=== PATIENT | female | born 1975 | race Caucasian/White ===

== ENCOUNTER 2022-09-07 15:45 | Emergency (ER) | payer BC, OTHER ==
--- NOTE | 2022-09-07 18:11 | RAD REPORT ---
EXAM DESCRIPTION: RAD - Chest Single View - 09/07/2022 6:04 pm CLINICAL HISTORY: CHEST PAIN COMPARISON: None TECHNIQUE: AP portable chest image was obtained 09/07/2022 6:04 pm . FINDINGS: No peripheral mass or consolidation. Hazy increased opacification at each lung base could be minimal infiltrate or atelectasis. Minimal bibasilar infiltrate is not entirely excluded. Heart and vasculature are normal. No measurable pleural effusion and no pneumothorax. No acute bony abnormality seen. No acute aortic findings suspected. IMPRESSION: Minimal hazy opacification at each lung base that could be minimal atelectasis or infilt rate.
[2022-09-07 18:28] LABS: Hematocrit 41.9 % (36.0-45.0); Lymphocytes % 37.1 % (15.3-44.8); MCV 104.2 fL (80-100); MPV 9.3 fL (7.6-11.3); RBC Red Blood Cell Count 4.02 M/uL (3.86-4.86)
[2022-09-07 18:31] LABS: Protime INR 1.08
[2022-09-07 18:42] LABS: Potassium 3.9 mmol/L (3.5-5.1); Troponin High Sensitivity 22.3 pg/mL (<58.9)
[2022-09-07] MEDS ORDERED: FENTANYL CITR 100 MCG/2 ML ONE ×2 (18:44→20:45)
[2022-09-07 19:05] LABS: SARS-COV-2 RT PCR NEGATIVE (NEGATIVE)
--- NOTE | 2022-09-07 19:36 | RAD REPORT ---
EXAM DESCRIPTION: CT - Head Brain Wo Cont - 09/07/2022 7:25 pm CLINICAL HISTORY: Hypertensive emergency COMPARISON: No comparisons TECHNIQUE: Axial 5 mm thick images of the head were obtained without IV contrast. All CT scans are performed using dose optimization technique as appropriate and may include automated exposure control or mA/KV adjustment according to patient size. FINDINGS: No intracranial hemorrhage, mass, edema or shift of mid-line structures. No acute infarcti on changes seen. No abnormal extra-axial fluid collections. Ventricles are normal. Mastoid air cells and visualized portions of the paranasal sinuses are clear. No acute bony findings. IMPRESSION: Negative non-contrast CT head examination.
--- NOTE | 2022-09-07 19:37 | RAD REPORT ---
EXAM DESCRIPTION: CT - Chest For Pe Angio - 09/07/2022 7:25 pm CLINICAL HISTORY: chest pain COMPARISON: Chest Single View dated 09/07/2022 TECHNIQUE: Dynamically enhanced 3 mm thick images of the chest were obtained during administration o f approximately 150mL Isovue 370 IV contrast. Coronal and oblique MIP reconstruction images were gene rated and reviewed. Exam utilizes a protocol to evaluate the pulmonary arterial tree. All CT scans are performed using dose optimization technique as appropriate and may include automated exposure control or mA/KV adjustment according to patient size. FINDINGS: No pulmonary emboli are identified. The aorta as imaged shows no acute or suspicious finding. No pericardial thickening or effusion. No infiltrate or mass in the lung parenchyma. Minimal lung base atelectasis present. Prominent perica rdial fat pad noted on the right. No pleural effusion or pleural thickening. No mediastinal or hilar suspicious masses. No chest wall masses or abnormal axillary lymphadenopathy. IMPRESSION: No pulmonary emboli identified. No other significant or suspicious findings.
[2022-09-07] MEDS ORDERED: ASPIRIN 81 MG CHEWABLE TABLET ONE (20:44)
[2022-09-07] MEDS ORDERED: carvediloL 6.25 MG TAB ONE (20:44)
[2022-09-07] MEDS ORDERED: CYANOCOBALAMIN 1,000 MCG TAB ONE (20:54)
[2022-09-07] MEDS ORDERED: CYANOCOBALAMIN 1000MCG/ML INJ ONE ×2 (21:23→21:40)
[2022-09-07 21:38] LABS: Creatine Phosphokinase 34 U/L (26-192); Troponin High Sensitivity 23.6 pg/mL (<58.9)
[2022-09-07 22:09] LABS: CKMB Creatine Kinase MB < 1.0 ng/mL (1.0-3.6)
--- NOTE | 2022-09-07 22:15 | EDPHYS ---
Physician Documentation [facility] Name: Kerry Morales Age: 46 yrs Sex: Female : 1975 Arrival Date: 09/07/2022 Time: 15:46 Bed 17 Private MD: ED Physician Raman Delgado HPI: 09/07 18:24 This 46 yrs old Female presents to ER via Ambulatory with complaints of High Blood snw Pressure, Headache, Shortness Of Breath. 18:24 The patient has elevated blood pressure and discovered this at home. Onset: The snw symptoms/episode began/occurred acutely. Modifying factors: The symptoms are aggravated by no coreg x 2 months. Severity of symptoms: At its worst the blood pressure was severe, 200 mm Hg. The patient has experienced similar episodes in the past. The patient has not recently seen a physician. 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 - Social history:: Smoking status: Patient reports the use of cigarette tobacco products, smokes one-half pack cigarettes per day. ROS: 18:15 Eyes: Negative for injury, pain, redness, and discharge, ENT: Negative for injury, snw pain, and discharge, Neck: Negative for injury, pain, and swelling. 18:15 Constitutional: Positive for fatigue, malaise. 18:15 Cardiovascular: Positive for chest pain, of the left subscapular area and right subscapular area. Exam: 18:16 Head/Face: Normocephalic, atraumatic. snw 18:16 ENT: Nares patent. No nasal discharge, no septal abnormalities noted. Tympanic membranes are normal and external auditory canals are clear. Oropharynx with no redness, swelling, or masses, exudates, or evidence of obstruction, uvula midline. Mucous membranes moist. Neck: Trachea midline, no thyromegaly or masses palpated, and no cervical lymphadenopathy. Supple, full range of motion without nuchal rigidity, or vertebral point tenderness. No Meningismus. Chest/axilla: Normal chest wall appearance and motion. Nontender with no deformity. No lesions are appreciated. Cardiovascular: Regular rate and rhythm with a normal S1 and S2. No gallops, murmurs, or rubs. Normal PMI, no JVD. No pulse deficits. Respiratory: Lungs have equal breath sounds bilaterally, clear to auscultation and percussion. No rales, rhonchi or wheezes noted. No increased work of breathing, no retractions or nasal flaring. Abdomen/GI: Soft, non-tender, with normal bowel sounds. No distension or tympany. No guarding or rebound. No evidence of tenderness throughout. Back: No spinal tenderness. No costovertebral tenderness. Full range of motion. Skin: Warm, dry with normal turgor. Normal color with no rashes, no lesions, and no evidence of cellulitis. MS/ Extremity: Pulses equal, no cyanosis. Neurovascular intact. Full, normal range of motion. Neuro: Awake and alert, GCS 15, oriented to person, place, time, and situation. Cranial nerves II-XII grossly intact. Motor strength 5/5 in all extremities. Sensory grossly intact. Cerebellar exam normal. Normal gait. Psych: Awake, alert, with orientation to person, place and time. Behavior, mood, and affect are within normal limits. 18:16 Constitutional: The patient appears alert, awake, anxious, uncomfortable. 18:16 Eyes: Pupils: equal, round, and reactive to light and accomodation, Conjunctiva: normal, Sclera: no appreciated abnormality. Vital Signs: 16:50 Pulse 76; Resp 15; Temp 98.4(O); Pulse Ox 100% on R/A; ss 16:51 BP 198 / 102; ss 18:41 BP 192 / 100 RA; Pulse 77; Resp 15; Pulse Ox 100% ; jl7 18:41 BP 203 / 110 LA; Pulse 78; jl7 19:19 BP 184 / 99; Pulse 75; Resp 19 S; Pulse Ox 100% on R/A; ha1 20:20 BP 177 / 102; Pulse 79; Resp 19; Pulse Ox 99% on R/A; ha1 21:20 BP 164 / 88; Pulse 73; Resp 19 S; Pulse Ox 98% on R/A; ha1 22:20 BP 152 / 93; Pulse 70; Resp 18 S; Pulse Ox 99% on R/A; ha1 MDM: 17:56 Patient medically screened. snw 20:27 Data reviewed: vital signs, nurses notes, EKG, radiologic studies, CT scan. Data snw interpreted: Pulse oximetry: on room air is 100 %. Interpretation: normal. Counseling: I had a detailed discussion with the patient and/or guardian regarding: the historical points, exam findings, and any diagnostic results supporting the discharge/admit diagnosis, the presence of at least one elevated blood pressure reading (>120/80) during this emergency department visit, lab results, radiology results. Transition of care: After a detail discussion of the patient's case, care is transferred to Raman Delgado MD. ED course: awaiting second EKG, Troponin. 20:28 HEART Score: History: Slightly Suspicious (0), ECG: Normal (0), Age: < or = 45 years snw (0), Risk Factors: 1 or 2 risk factors (1), [Hypertension] Troponin: < or = 1 x Normal Limit (0), Total Score = 1. The patient was given aspirin in the Emergency Department. 22:16 ED course: Your repeat EKG was normal as well as the high-sensitivity troponin. Patient kdr will be discharged. 09/07 17:09 Order name: Basic Metabolic Panel; Complete Time: 18:44 ss 09/07 17:09 Order name: CBC with Diff; Complete Time: 18:31 ss 09/07 17:09 Order name: Troponin HS; Complete Time: 18:44 ss 09/07 18:14 Order name: Ptt, Activated; Complete Time: 18:32 snw 09/07 18:14 Order name: PT-INR; Complete Time: 18:32 snw 09/07 18:14 Order name: COVID-19/FLU A+B/RSV; Complete Time: 19:05 snw 09/07 17:09 Order name: XRAY Chest (1 view); Complete Time: 18:14 ss 09/07 18:14 Order name: CT Chest For PE Angio; Complete Time: 19:42 snw 09/07 18:14 Order name: CT Head Brain wo Cont; Complete Time: 19:42 snw 09/07 21:18 Order name: Creatine Phosphokinase; Complete Time: 22:14 EDMS 09/07 21:18 Order name: CKMB Creatine Kinase MB; Complete Time: 22:14 EDMS 09/07 21:18 Order name: Troponin High Sensitivity; Complete Time: 22:14 EDMS 09/07 17:06 Order name: EKG; Complete Time: 17:07 ss 09/07 17:06 Order name: EKG - Nurse/Tech; Complete Time: 17:06 ss 09/07 17:09 Order name: Cardiac monitoring; Complete Time: 18:57 ss 09/07 17:09 Order name: IV Saline Lock; Complete Time: 18:15 ss 09/07 17:09 Order name: Labs collected and sent; Complete Time: 18:15 ss 09/07 17:09 Order name: O2 Per Protocol; Complete Time: 18:57 ss 09/07 17:09 Order name: O2 Sat Monitoring; Complete Time: 18:57 ss 09/07 19:45 Order name: Repeat Cardiac Enzymes at: 2030; repeat EKG at that time as well snw EC:00 Rate is 73 beats/min. Rhythm is regular. QRS [place] is Normal. [place] interval is normal. QRS snw interval is normal. QT interval is normal. T waves are Inverted in lead III. Clinical impression: NSR w/ Non-specific ST/T Changes. Administered Medications: 18:16 CANCELLED (Inappropriate at this time): fentaNYL (PF) 1 mcg/kg/h IV at calculated rate snw once; Document RASS score before and after administration. 18:57 Drug: fentaNYL (PF) 25 mcg Route: IVP; Site: left antecubital; jl7 21:26 Follow up: Response: No adverse reaction; Pain is decreased; RASS: Alert and Calm (0) ha1 21:02 Drug: fentaNYL (PF) 25 mcg Route: IVP; Site: left antecubital; ha1 21:03 Drug: Aspirin Chewable Tablet 324 mg Route: PO; ha1 21:26 Follow up: Response: No adverse reaction ha1 21:03 Drug: carvedilol 25 mg Route: PO; ha1 21:26 Follow up: Response: No adverse reaction ha1 22:09 Drug: Cyanocobalamin 1000 mcg Route: IM; Site: left ventrogluteal; ha1 Disposition: 22:14 Co-signature as Attending Physician, Raman Delgado MD I agree with the assessment and kdr plan of care. Disposition Summary: 09/07/22 22:15 Discharge Ordered Location: Home kdr Condition: Stable kdr Diagnosis - Chest pain on breathing kdr - Pleuritic chest pain kdr - Hypertensive urgency kdr Followup: snw - With: Emergency Department - When: As needed - Reason: Worsening of condition Followup: snw - With: Private Physician - When: 5 - 6 days - Reason: Recheck today's complaints, Continuance of care, Re-evaluation by your physician Discharge Instructions: - Discharge Summary Sheet snw - Nonspecific Chest Pain, Adult snw - Chest Wall Pain snw - Hypertension, Adult snw - Form - Blood Pressure Record Sheet snw - Form - Return To Work snw Forms: - Medication Reconciliation Form kdr - Thank You Letter kdr - Antibiotic Education kdr - Prescription Opioid Use kdr Prescriptions: - Mobic 7.5 mg Oral Tablet - take 1 tablet by ORAL route once daily take with food; 20 tablet; Refills: 0, snw Product Selection Permitted - Tramadol 50 mg Oral Tablet - take 1 tablet by ORAL route every 8 hours as needed; 12 tablet; Refills: 0, snw Product Selection Permitted - Carvedilol 12.5 mg Oral Tablet - take 1 tablet by ORAL route 2 times per day with food; 60 tablet; Refills: 0, snw Product Selection Permitted Signatures: Dispatcher [employer] EDMS Raman Delgado MD MD kdr Waters, Shelly, FORENSIC SCIENCE EXAMINER-C FORENSIC SCIENCE EXAMINER-Csnw Jackie Trejo RN RN ss Aicha Castellano, RN RN jl7 Ambika Cornell, RN RN ha1 Corrections: (The following items were deleted from the chart) 18:16 18:14 fentaNYL (PF) 1 mcg/kg/h IV at calculated rate once; Document RASS score before snw and after administration. ordered. snw
--- NOTE | 2022-09-07 22:15 | ER ---
Nurse's Notes [facility] Name: Kerry Morales Age: 46 yrs Sex: Female : 1975 Arrival Date: 09/07/2022 Time: 15:46 Bed 17 Private MD: Diagnosis: Chest pain on breathing;Pleuritic chest pain;Hypertensive urgency Presentation: 09/07 16:51 Chief complaint: Patient states: Pain across mid-upper back that wraps around front of ss body that began earlier today. Pt reports that she is supposed to be taking BP medication, but has not taken her Coreg in over two months. Coronavirus screen: Client denies travel out of the [place] in the last 14 days. Ebola Screen: Patient denies exposure to infectious person. Patient denies travel to an Ebola-affected area in the 21 days before illness onset. Initial Sepsis Screen: Does the patient meet any 2 criteria? No. Patient's initial sepsis screen is negative. Does the patient have a suspected source of infection? No. Patient's initial sepsis screen is negative. Risk Assessment: Do you want to hurt yourself or someone else? Patient reports no desire to harm self or others. Onset of symptoms was September 07, 2022. 16:51 Method Of Arrival: Ambulatory ss 16:51 Acuity: ELENA 2 ss Triage Assessment: 22:45 Pain: Also complains of no other associated symptoms. 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 - Social history:: Smoking status: Patient reports the use of cigarette tobacco products, smokes one-half pack cigarettes per day. Screenin:41 Abuse screen: Denies threats or abuse. Denies injuries from another. Nutritional jl7 screening: No deficits noted. Tuberculosis screening: No symptoms or risk factors identified. Fall Risk None identified. Assessment: 18:45 General: Appears in no apparent distress. uncomfortable, Behavior is calm, cooperative, jl7 appropriate for age. Pain: Complains of pain in left subscapular area and right subscapular area Pain currently is 8 out of 10 on a pain scale. at worst was 8 out of 10 on a pain scale. Neuro: Level of Consciousness is awake, alert, obeys commands, Oriented to person, place, time, situation. Cardiovascular: Patient's skin is warm and dry. Respiratory: Airway is patent Respiratory effort is even, unlabored, Respiratory pattern is regular, symmetrical. Derm: Skin is pink, warm \T\ dry. 18:55 Reassessment: Pt reports stopping Aren 2 months ago because she ran out. jl7 19:17 General: Appears uncomfortable, Behavior is calm, cooperative. Pain: Complains of pain ha1 in back and right subscapular area. Neuro: Level of Consciousness is awake, alert, obeys commands, Oriented to person, place, time, situation. Cardiovascular: Patient's skin is warm and dry. Respiratory: Airway is patent Respiratory effort is even, unlabored, Respiratory pattern is regular, symmetrical. Derm: Skin is pink, warm \T\ dry. Musculoskeletal: Circulation, motion, and sensation intact. 20:20 Reassessment: Patient and/or family updated on plan of care and expected duration. Pain ha1 level reassessed. Patient is alert, oriented x 3, equal unlabored respirations, skin warm/dry/pink. pain 10/10. Notified care provider. 21:20 Reassessment: Patient and/or family updated on plan of care and expected duration. Pain ha1 level reassessed. Patient is alert, oriented x 3, equal unlabored respirations, skin warm/dry/pink. pain 3/10. 22:20 Reassessment: Patient and/or family updated on plan of care and expected duration. Pain ha1 level reassessed. Patient is alert, oriented x 3, equal unlabored respirations, skin warm/dry/pink. Vital Signs: 16:50 Pulse 76; Resp 15; Temp 98.4(O); Pulse Ox 100% on R/A; ss 16:51 BP 198 / 102; ss 18:41 BP 192 / 100 RA; Pulse 77; Resp 15; Pulse Ox 100% ; jl7 18:41 BP 203 / 110 LA; Pulse 78; jl7 19:19 BP 184 / 99; Pulse 75; Resp 19 S; Pulse Ox 100% on R/A; ha1 20:20 BP 177 / 102; Pulse 79; Resp 19; Pulse Ox 99% on R/A; ha1 21:20 BP 164 / 88; Pulse 73; Resp 19 S; Pulse Ox 98% on R/A; ha1 22:20 BP 152 / 93; Pulse 70; Resp 18 S; Pulse Ox 99% on R/A; ha1 ED Course: 15:46 Patient arrived in ED. as 16:16 Aren Bonner PA is PHCP. cp 16:16 Cresencio Beaver MD is Attending Physician. cp 16:50 Arm band placed on right wrist. ss 16:53 Triage completed. ss 17:51 Steph Tracy FNP-C is PHCP. snw 17:51 Cresencio Beaver MD is Attending Physician. snw 17:55 Steph Tracy FNP-C is PHCP. snw 17:55 Cresencio Beaver MD is Attending Physician. snw 18:06 XRAY Chest (1 view) In Process Unspecified. EDMS 18:14 Inserted saline lock: 22 gauge in left antecubital area, using aseptic technique. Blood zm collected. 18:15 PT-INR Sent. zm 18:15 Ptt, Activated Sent. zm 18:15 Basic Metabolic Panel Sent. zm 18:15 CBC with Diff Sent. zm 18:15 Troponin HS Sent. zm 18:23 COVID-19/FLU A+B/RSV Sent. zm 18:41 Patient has correct armband on for positive identification. Placed in gown. Bed in low jl7 position. Call light in reach. Side rails up X2. Client placed on continuous cardiac and pulse oximetry monitoring. NIBP monitoring applied. Warm blanket given. 19:17 Ambiak Cornell, RN is Primary Nurse. ha1 19:27 CT Chest For PE Angio In Process Unspecified. EDMS 19:27 CT Head Brain wo Cont In Process Unspecified. EDMS 20:27 Attending Physician role handed off by Cresencio Beaver MD kdr 20:27 Raman Delgado MD is Attending Physician. kdr 22:45 No provider procedures requiring assistance completed. IV discontinued, intact, ha1 bleeding controlled, No redness/swelling at site. Pressure dressing applied. Administered Medications: 18:16 CANCELLED (Inappropriate at this time): fentaNYL (PF) 1 mcg/kg/h IV at calculated rate snw once; Document RASS score before and after administration. 18:57 Drug: fentaNYL (PF) 25 mcg Route: IVP; Site: left antecubital; jl7 21:26 Follow up: Response: No adverse reaction; Pain is decreased; RASS: Alert and Calm (0) ha1 21:02 Drug: fentaNYL (PF) 25 mcg Route: IVP; Site: left antecubital; ha1 21:03 Drug: Aspirin Chewable Tablet 324 mg Route: PO; ha1 21:26 Follow up: Response: No adverse reaction ha1 21:03 Drug: carvedilol 25 mg Route: PO; ha1 21:26 Follow up: Response: No adverse reaction ha1 22:09 Drug: Cyanocobalamin 1000 mcg Route: IM; Site: left ventrogluteal; ha1 Medication: 18:41 VIS not applicable for this client. jl7 Outcome: 22:15 Discharge ordered by . kdr 22:45 Discharge instructions given to patient, family, Instructed on discharge instructions, ha1 follow up and referral plans. medication usage, Demonstrated understanding of instructions, follow-up care, medications, Prescriptions given X 3. 22:46 Discharged to home ambulatory, with family. ha1 22:46 Condition: stable 22:46 Patient left the ED. ha1 Signatures: Dispatcher [employer] EDMS Raman Delgado MD MD kdr Waters, Shelly, APPLIANCES SAMPLE MAKER-C APPLIANCES SAMPLE MAKER-Arianne Tesfaye Shelby, RN RN Aren Suarez PA PA cp Leal, Jahala, RN RN jl7 Concepcion Morales Heidy, RN RN 1
[2022-09-08 14:55] VITALS: TEMP 98.4
[2022-09-08 15:02] VITALS: BP 152/93; O2SAT 99
--- NOTE | 2022-09-10 15:03 | EKG ---
Test Date: 2022-09-07 Test Time: 21:59:37 Event Planning Intern: CARLOS MEASUREMENT RESULTS: Intervals: Rate: 62 AL: 172 QRSD: 82 QT: 410 QTc: 416 [place]: P: 40 AL: 172 QRS: 34 T: 32 INTERPRETIVE STATEMENTS: Normal sinus rhythm Normal ECG Compared to ECG 09/07/2022 17:04:15 No significant changes Electronically Signed On 09-10-22 14:57:36 PRODUCTION EXPERT by Wilson Kumari
--- NOTE | 2022-09-10 15:05 | EKG ---
Test Date: 2022-09-07 Test Time: 17:04:15 Solar Sales Ambassador: JORI MEASUREMENT RESULTS: Intervals: Rate: 73 OH: 174 QRSD: 78 QT: 376 QTc: 414 [place]: P: 17 OH: 174 QRS: 22 T: 24 INTERPRETIVE STATEMENTS: Normal sinus rhythm Normal ECG No previous ECG available for comparison Electronically Signed On 09-10-22 14:57:58 SUEDING AND BUFFING MACHINE OPERATOR by Wilson Kumari
== END 2022-09-07 22:46 | disposition home or self-care (01) ==
LOC: ER 15:45
DX: I16.0 Hypertensive urgency (principal); R07.89 Other chest pain; F17.210 Nicotine dependence, cigarettes, uncomplicated; Z20.822 Contact with and (suspected) exposure to COVID-19
CPT/HCPCS: 93005 ×2; 85025; 80048; 36415; 82550; 85610; 85730; 84484 ×2; 82553; 0241U; 70450; 71275; 71045; 96372; 96374; 99284; Q9967; J3420; J3010 ×2